=== PATIENT | male | born 1975 | race Caucasian/White ===

== ENCOUNTER 2016-11-16 17:29 | Emergency (ER) | payer OTHER ==
[~2016-11-16] VITALS: Ht 172.7 cm; Wt 57.0 kg
[~2016-11-16 17:29] MED LIST: PEPCID20 MG PO
[2016-11-16] MEDS ORDERED: IBUPROFEN400 MG PO (19:11)
[2016-11-16] MEDS ORDERED: ULTRAM50 MG PO (19:11)
[2016-11-16] MEDS ORDERED: FLEXERIL10 MG PO (19:11)
[2016-11-16 19:23] VITALS: BP 108/62
== END 2016-11-16 19:24 | disposition home or self-care (01) ==
LOC: EME 17:29
DX: S16.1XXA Strain of muscle, fascia and tendon at neck level, initial encounter (principal); V43.93XA Unspecified car occupant injured in collision with pick-up truck in traffic accident, initial encounter; F17.200 Nicotine dependence, unspecified, uncomplicated
CPT/HCPCS: 99281; 99284